=== PATIENT | female | born 1980 | race Caucasian/White ===

== ENCOUNTER 2018-05-21 13:42 | Emergency (ER) | payer OTHER ==
[~2018-05-21] VITALS: Ht 167.6 cm; Wt 65.8 kg
[~2018-05-21 13:42] MED LIST: AUGMENTIN 875875 MG PO; BENTYL 10 MG CA10 MG; CIPRO250 M1 PO; IRON325; NORCO 5-325 TA1 EACH PO; PHENERGAN 25 MG25 M1 PO; PHENERGAN 25 MG25 MG PO; SERTRALINE HCL50 MG; TRINATE TABLET1 TAB
[2018-05-21 13:50] VITALS: BP 112/69
[2018-05-21 14:14] LABS: ABSOLUTE NEUTROPHILS 6.5 thou/uL (1.4-8.2); BASOPHILS 0.4 % (0.0-2.0); EOSINOPHILS 0.2 % (0.0-3.0); HEMATOCRIT 39.7 % (37.0-47.0); HEMOGLOBIN 13.7 gm/dL (12.0-15.0); LYMPHOCYTES 11.7 % (24.0-44.0); MCH 27.5 pg (26.0-34.0); MCHC 34.4 g/dL (28.0-37.0); MCV 79.8 fL (80.0-100.0); MONOCYTES 3.9 % (1.0-8.0); PLATELET COUNT 301 thou/uL (150-400); POLYS 83.8 % (36.0-66.0); RBC 4.98 mil/uL (4.20-5.00); RDW 14.2 % (10.5-14.5); WBC 7.8 thou/uL (4.0-11.0)
[2018-05-21 14:25] LABS: CALCIUM 8.7 mg/dL (8.5-10.1); CREATININE 0.9 mg/dL (0.6-1.0); POTASSIUM 3.8 mmol/L (3.5-5.1)
[2018-05-21 14:29] LABS: TOTAL BILIRUBIN 0.5 mg/dL (<0.1-1.0); TOTAL PROTEIN 8.2 g/dL (6.4-8.2)
[2018-05-21 15:42] LABS: URINE BLOOD NEGATIVE (Negative); URINE CLARITY CLEAR; URINE COLOR YELLOW; URINE GLUCOSE-RANDOM* NEGATIVE (Negative); URINE KETONES NEGATIVE (Negative); URINE NITRITE-REFLEX NEGATIVE (Negative); URINE PROTEIN (DIPSTICK) TRACE (Negative); URINE SPECIFIC GRAVITY 1.025 (1.005-1.035)
[2018-05-21 15:46] LABS: ICTOTEST (BILI CONFIRMATORY) Negative (Negative); URINE BILIRUBIN NEGATIVE (Negative); URINE LEUKOCYTES-REFLEX 2+ (Negative)
[2018-05-21 15:53] LABS: BACTERIA-REFLEX 1-9 Few /HPF (None Seen); CASTS None Seen /LPF (None Seen); CRYSTALS None Seen /LPF (None Seen); MUCUS >6 Heavy strn/LPF (None Seen); SQUAMOUS 4-10 Moderate /LPF (0-3); URINE RBC 3-10 Few /HPF (0-2); URINE WBC-REFLEX >25 Many /HPF (0-5)
[2018-05-21] MEDS ORDERED: ANTIVERT25 MG PO (16:55)
[2018-05-21] MEDS ORDERED: ONDANSETRON HCL4 M2 PO (16:55)
== END 2018-05-21 17:02 | disposition home or self-care (01) ==
LOC: ER 13:42
PROVIDERS: Physician Assistant
DX: R11.2 Nausea with vomiting, unspecified (principal); R42 Dizziness and giddiness; F32.9 Major depressive disorder, single episode, unspecified